=== PATIENT | male | born 1980 | race Hispanic/Latino ===

== ENCOUNTER 2018-05-22 21:53 | Emergency (ER) | payer MEDICAID ==
[~2018-05-22] VITALS: Ht 165.1 cm; Wt 91.0 kg
[2018-05-23 01:30] VITALS: BP 121/73
== END 2018-05-23 01:00 | disposition home or self-care (01) ==
LOC: ED 21:53
DX: S00.83XA Contusion of other part of head, initial encounter (principal); W21.02XA Struck by soccer ball, initial encounter; Y93.66 Activity, soccer; Y92.79 Other farm location as the place of occurrence of the external cause

== ENCOUNTER 2019-05-05 20:51 | Emergency (ER) | payer MEDICAID ==
[~2019-05-05] VITALS: Ht 165.1 cm; Wt 90.9 kg
[2019-05-05] MEDS ORDERED: CLARITIN10 M1 PO (22:06)
[2019-05-05] MEDS ORDERED: CEPHALEXIN500 M1 PO (22:06)
[2019-05-05] MEDS ORDERED: FLONASE AL50 MCG/ACT (22:06)
[2019-05-05 22:20] VITALS: BP 122/77
== END 2019-05-05 22:27 | disposition home or self-care (01) ==
LOC: ED 20:51
DX: J32.9 Chronic sinusitis, unspecified (principal)

== ENCOUNTER 2019-06-20 14:57 | Emergency (ER) | payer MEDICAID ==
[~2019-06-20] VITALS: Ht 165.1 cm; Wt 90.0 kg
[~2019-06-20 14:57] MED LIST: CEPHALEXIN500 M1 PO; CLARITIN10 M1 PO; FLONASE AL50 MCG/ACT
[2019-06-20 15:50] VITALS: BP 119/69
[2019-06-20] MEDS ORDERED: AMOXICILLIN875 MG PO (15:53)
[2019-06-20] MEDS ORDERED: CORTISPORIN OTI10 M2 AD (15:53)
== END 2019-06-20 15:50 | disposition home or self-care (01) ==
LOC: ED 14:57
DX: H60.91 Unspecified otitis externa, right ear (principal); H66.91 Otitis media, unspecified, right ear

== ENCOUNTER 2019-11-18 | Emergency (ER) | payer MEDICAID ==
[~2019-11-18] MED LIST changes: +AMOXICILLIN875 MG PO; +CORTISPORIN OTI10 M2 AD
[2019-11-18] MEDS ORDERED: TRAMADOL HYDROC50 MG PO (01:27)
[2019-11-18] MEDS ORDERED: IBUPROFEN600 MG PO (01:27)
== END 2019-11-18 01:39 | disposition home or self-care (01) ==
DX: S83.91XA Sprain of unspecified site of right knee, initial encounter (principal); M17.11 Unilateral primary osteoarthritis, right knee; X50.0XXA Overexertion from strenuous movement or load, initial encounter; Y93.89 Activity, other specified

== ENCOUNTER 2020-08-15 09:15 | Emergency (ER) | payer MEDICAID ==
[~2020-08-15] VITALS: Ht 165.1 cm; Wt 90.0 kg
[~2020-08-15 09:15] MED LIST changes: +IBUPROFEN600 MG PO; +TRAMADOL HYDROC50 MG PO
[2020-08-15 09:46] LABS: HEMATOCRIT 43.7 % (39.0-50.0); HEMOGLOBIN 14.9 g/dl (14.0-18.0); IMMATURE GRANULOCYTES 0.6 % (0.0-5.0); MEAN CELL VOLUME 89.2 fL CALC (80.0-100.0); MEAN CORPUSCULAR HGB 30.4 pG CALC (26.0-32.0); MEAN CORPUSCULAR HGB CONC 34.1 g/dL CAL (32.0-36.0); NEUT# 2.25 thou/uL (1.82-7.42); RED BLOOD COUNT 4.9 mill/uL (4.70-6.10); RED CELL DISTRI WIDTH 13.1 % (11.5-15.5)
[2020-08-15 09:57] LABS: ALBUMIN 4.4 g/dL (3.2-5.0); ALKALINE PHOSPHATASE 70 u/l (38-126); ANION GAP 14 (6-22 (CALC)); BILIRUBIN, TOTAL 0.8 mg/dL (0.0-1.4); BUN 14 mg/dL (9-20); BUN/CREATININE RATIO 19 (12-20 (CALC)); CARBON DIOXIDE 24 mmol/l (22-30); CHLORIDE 105 mmol/l (95-108); CREATININE 0.8 mg/dL (0.7-1.3); GFR > 60 ML/MIN (>=60 (CALC)); GFR FOR AFR.AMER. > 60 ML/MIN (>=60 (CALC)); LIPASE 42 u/l (23-300); POTASSIUM 3.9 mmol/l (3.5-5.1); SGOT/AST 29 u/l (17-59); SODIUM 139 mmol/l (137-146); TOTAL PROTEIN 7.6 g/dL (6.3-8.2)
[2020-08-15 11:15] LABS: URINE BILIRUBIN - DIPSTICK NEGATIVE (NEGATIVE); URINE BLOOD DIPSTICK NEGATIVE (NEGATIVE); URINE COLOR YELLOW; URINE GLUCOSE - DIPSTICK NEGATIVE (NEGATIVE); URINE KETONE NEGATIVE (NEGATIVE); URINE LEUK ESTERASE NEGATIVE (NEGATIVE); URINE NITRITE - DIPSTICK NEGATIVE (Negative); URINE PH 7.5 (4.5-8.0); URINE PROTEIN - DIPSTICK NEGATIVE (NEG-TRACE); URINE UROBILINOGEN - DIPSTICK 0.2 E.U./dL (0.2)
[2020-08-15 11:44] VITALS: BP 135/79
== END 2020-08-15 11:48 | disposition home or self-care (01) ==
LOC: ED 09:15
PROVIDERS: Family Medicine
DX: R07.9 Chest pain, unspecified (principal); R10.11 Right upper quadrant pain

== ENCOUNTER 2020-11-26 21:46 | Emergency (ER) | payer MEDICAID ==
[2020-11-26 22:15] LABS: HEMATOCRIT 38.4 % (39.0-50.0); HEMOGLOBIN 13.5 g/dl (14.0-18.0); IMMATURE GRANULOCYTES 0.4 % (0.0-5.0); MEAN CELL VOLUME 85.9 fL CALC (80.0-100.0); MEAN CORPUSCULAR HGB 30.2 pG CALC (26.0-32.0); MEAN CORPUSCULAR HGB CONC 35.2 g/dL CAL (32.0-36.0); NEUT# 2.53 thou/uL (1.82-7.42); RED BLOOD COUNT 4.47 mill/uL (4.70-6.10)
[2020-11-26 22:32] LABS: ALBUMIN 4.2 g/dL (3.2-5.0); ALKALINE PHOSPHATASE 70 u/l (38-126); ANION GAP 11 (6-22 (CALC)); BILIRUBIN, TOTAL 0.7 mg/dL (0.0-1.4); BUN 22 mg/dL (9-20); BUN/CREATININE RATIO 27 (12-20 (CALC)); CARBON DIOXIDE 25 mmol/l (22-30); CHLORIDE 105 mmol/l (95-108); CREATININE 0.8 mg/dL (0.7-1.3); GFR > 60 ML/MIN (>=60 (CALC)); GFR FOR AFR.AMER. > 60 ML/MIN (>=60 (CALC)); POTASSIUM 3.8 mmol/l (3.5-5.1); SGOT/AST 25 u/l (17-59); SODIUM 137 mmol/l (137-146); TOTAL PROTEIN 7.1 g/dL (6.3-8.2)
[2020-11-26 22:44] LABS: ACT PARTIAL THROMBO TIME 25.2 SECONDS (20.0-32.5); MYOGLOBIN 29 ng/mL (0 - 121); PROTHROMBIN TIME 9.9 SECONDS (9.0-12.5)
[2020-11-26 22:53] LABS: D-DIMER 0.17 mg/L (0.19-0.60)
[2020-11-26] MEDS ORDERED: MECLIZINE25 MG PO (23:40)
[2020-11-26 23:56] VITALS: BP 122/77
== END 2020-11-26 23:55 | disposition home or self-care (01) ==
LOC: ED 21:46
PROVIDERS: Family Medicine
DX: R42 Dizziness and giddiness (principal); F17.210 Nicotine dependence, cigarettes, uncomplicated

== ENCOUNTER 2021-02-28 19:08 | Emergency (ER) | payer MEDICAID ==
[~2021-02-28] VITALS: Ht 165.1 cm; Wt 90.0 kg
[~2021-02-28 19:08] MED LIST changes: +MECLIZINE25 MG PO
[2021-02-28 19:58] LABS: HEMATOCRIT 40.9 % (39.0-50.0); HEMOGLOBIN 14.3 g/dl (14.0-18.0); IMMATURE GRANULOCYTES 0.2 % (0.0-5.0); MEAN CELL VOLUME 86.1 fL CALC (80.0-100.0); MEAN CORPUSCULAR HGB 30.1 pG CALC (26.0-32.0); NEUT# 2.85 thou/uL (1.82-7.42); RED BLOOD COUNT 4.75 mill/uL (4.70-6.10); RED CELL DISTRI WIDTH 12.6 % (11.5-15.5)
[2021-02-28 19:59] LABS: URINE BILIRUBIN - DIPSTICK NEGATIVE (NEGATIVE); URINE BLOOD DIPSTICK NEGATIVE (NEGATIVE); URINE COLOR YELLOW; URINE GLUCOSE - DIPSTICK NEGATIVE (NEGATIVE); URINE KETONE NEGATIVE (NEGATIVE); URINE LEUK ESTERASE NEGATIVE (NEGATIVE); URINE PROTEIN - DIPSTICK NEGATIVE (NEG-TRACE); URINE SPECIFIC GRAVITY >=1.030; URINE UROBILINOGEN - DIPSTICK 0.2 E.U./dL (0.2)
[2021-02-28 20:04] LABS: URINE NITRITE - DIPSTICK NEGATIVE (Negative)
[2021-02-28 20:13] LABS: ALBUMIN 4.3 g/dL (3.2-5.0); ALKALINE PHOSPHATASE 65 u/l (38-126); AMYLASE 89 u/l (30-110); ANION GAP 12 (6-22 (CALC)); BILIRUBIN, TOTAL 0.5 mg/dL (0.0-1.4); BUN 24 mg/dL (9-20); BUN/CREATININE RATIO 28 (12-20 (CALC)); CARBON DIOXIDE 25 mmol/l (22-30); CHLORIDE 104 mmol/l (95-108); CREATININE 0.9 mg/dL (0.7-1.3); GFR > 60 ML/MIN (>=60 (CALC)); GFR FOR AFR.AMER. > 60 ML/MIN (>=60 (CALC)); LIPASE 71 u/l (23-300); POTASSIUM 3.8 mmol/l (3.5-5.1); SGOT/AST 26 u/l (17-59); SODIUM 137 mmol/l (137-146); TOTAL PROTEIN 7.4 g/dL (6.3-8.2)
[2021-02-28 21:55] VITALS: BP 115/68
== END 2021-02-28 21:58 | disposition home or self-care (01) ==
LOC: ED 19:08
PROVIDERS: Family Medicine
DX: R10.32 Left lower quadrant pain (principal); N32.9 Bladder disorder, unspecified; F17.200 Nicotine dependence, unspecified, uncomplicated; Z20.2 Contact with and (suspected) exposure to infections with a predominantly sexual mode of transmission

== ENCOUNTER 2021-05-07 16:59 | Emergency (ER) | payer MEDICAID ==
[~2021-05-07] VITALS: Ht 165.1 cm; Wt 90.0 kg
[2021-05-07 18:10] VITALS: BP 128/68
== END 2021-05-07 18:10 | disposition home or self-care (01) ==
LOC: ED 16:59
DX: R05 Cough (principal); F17.200 Nicotine dependence, unspecified, uncomplicated; Z86.16 Personal history of COVID-19; Z20.822 Contact with and (suspected) exposure to COVID-19

== ENCOUNTER 2021-06-19 10:57 | Emergency (ER) | payer MEDICAID ==
[~2021-06-19] VITALS: Ht 165.1 cm; Wt 100.0 kg
[2021-06-19 12:04] LABS: HEMATOCRIT 42.4 % (39.0-50.0); HEMOGLOBIN 14.7 g/dl (14.0-18.0); IMMATURE GRANULOCYTES 0.2 % (0.0-5.0); MEAN CELL VOLUME 89.1 fL CALC (80.0-100.0); MEAN CORPUSCULAR HGB 30.9 pG CALC (26.0-32.0); MEAN CORPUSCULAR HGB CONC 34.7 g/dL CAL (32.0-36.0); NEUT# 2.4 thou/uL (1.82-7.42); RED BLOOD COUNT 4.76 mill/uL (4.70-6.10); RED CELL DISTRI WIDTH 12.7 % (11.5-15.5)
[2021-06-19 12:27] LABS: ALBUMIN 4.3 g/dL (3.2-5.0); ALKALINE PHOSPHATASE 71 u/l (38-126); ANION GAP 11 (6-22 (CALC)); BILIRUBIN, TOTAL 0.7 mg/dL (0.0-1.4); BUN 19 mg/dL (9-20); BUN/CREATININE RATIO 26 (12-20 (CALC)); CARBON DIOXIDE 28 mmol/l (22-30); CHLORIDE 106 mmol/l (95-108); CREATININE 0.7 mg/dL (0.7-1.3); GFR > 60 ML/MIN (>=60 (CALC)); GFR FOR AFR.AMER. > 60 ML/MIN (>=60 (CALC)); POTASSIUM 3.9 mmol/l (3.5-5.1); SGOT/AST 31 u/l (17-59); SODIUM 141 mmol/l (137-146); TOTAL PROTEIN 7.1 g/dL (6.3-8.2)
[2021-06-19 12:44] LABS: URINE BILIRUBIN - DIPSTICK NEGATIVE (NEGATIVE); URINE BLOOD DIPSTICK NEGATIVE (NEGATIVE); URINE COLOR YELLOW; URINE GLUCOSE - DIPSTICK NEGATIVE (NEGATIVE); URINE KETONE NEGATIVE (NEGATIVE); URINE LEUK ESTERASE NEGATIVE (NEGATIVE); URINE PH 6.5 (4.5-8.0); URINE PROTEIN - DIPSTICK NEGATIVE (NEG-TRACE); URINE UROBILINOGEN - DIPSTICK 0.2 E.U./dL (0.2)
[2021-06-19 12:46] LABS: URINE NITRITE - DIPSTICK NEGATIVE (Negative)
[2021-06-19] MEDS ORDERED: MECLIZINE25 MG PO (13:00)
[2021-06-19] MEDS ORDERED: LEVAQUIN750 M1 PO (13:00)
[2021-06-19 13:17] VITALS: BP 129/73
== END 2021-06-19 13:17 | disposition home or self-care (01) ==
LOC: ED 10:57
PROVIDERS: Family Medicine
DX: R42 Dizziness and giddiness (principal); J32.9 Chronic sinusitis, unspecified; F17.200 Nicotine dependence, unspecified, uncomplicated; Z86.16 Personal history of COVID-19

== ENCOUNTER 2021-10-30 22:14 | Emergency (ER) | payer MEDICAID ==
[~2021-10-30] VITALS: Ht 165.1 cm; Wt 79.0 kg
[~2021-10-30 22:14] MED LIST changes: +LEVAQUIN750 M1 PO
[2021-10-30 23:29] VITALS: BP 109/69
[2021-10-30 23:40] VITALS: BP 103/64
[2021-10-31] VITALS: BP 110/69
[2021-10-31 00:20] VITALS: BP 111/62
[2021-10-31] MEDS ORDERED: TOBREX OPTH5 ML/BTL OD (00:58)
[2021-10-31 01:17] VITALS: BP 111/62
== END 2021-10-31 01:17 | disposition home or self-care (01) ==
LOC: ED 22:14
DX: H10.9 Unspecified conjunctivitis (principal); F17.200 Nicotine dependence, unspecified, uncomplicated; Z86.16 Personal history of COVID-19

== ENCOUNTER 2022-08-19 20:47 | Emergency (ER) | payer MEDICAID ==
[~2022-08-19] VITALS: Ht 165.1 cm; Wt 90.0 kg
[~2022-08-19 20:47] MED LIST changes: +TOBREX OPTH5 ML/BTL OD
[2022-08-19 22:11] LABS: BASO% 0.2 % (0-3); HEMOGLOBIN 14.6 g/dl (14.0-18.0); IMMATURE GRANULOCYTES 0.2 % (0.0-5.0); LYMPH% 9.1 % (15-41); MEAN CELL VOLUME 88.9 fL CALC (80.0-100.0); MEAN CORPUSCULAR HGB 31.7 pG CALC (26.0-32.0); MEAN CORPUSCULAR HGB CONC 35.6 g/dL CAL (32.0-36.0); MONO% 4.1 % (2-13); NEUT# 5.04 thou/uL (1.82-7.42); NEUT% 86.4 % (42-76); RED BLOOD COUNT 4.61 mill/uL (4.70-6.10); RED CELL DISTRI WIDTH 13.2 % (11.5-15.5)
[2022-08-19] MEDS ORDERED: ONDANSETRON4 MG PO (22:48)
[2022-08-19] MEDS ORDERED: IMODIUM2 MG PO (22:48)
[2022-08-19 23:15] VITALS: BP 136/83
== END 2022-08-19 23:20 | disposition home or self-care (01) ==
LOC: ED 20:47
PROVIDERS: Family Medicine
DX: B34.9 Viral infection, unspecified (principal); Z86.16 Personal history of COVID-19; Z20.822 Contact with and (suspected) exposure to COVID-19

== ENCOUNTER 2022-09-08 21:46 | Emergency (ER) | payer MEDICAID ==
[~2022-09-08] VITALS: Ht 162.6 cm; Wt 90.0 kg
[~2022-09-08 21:46] MED LIST changes: +IMODIUM2 MG PO; +ONDANSETRON4 MG PO
[2022-09-08 22:24] VITALS: BP 128/81
[2022-09-08 22:30] VITALS: BP 120/76
[2022-09-08 22:46] LABS: EOS% 1.7 % (0-8); HEMATOCRIT 38.7 % (39.0-50.0); HEMOGLOBIN 13.6 g/dl (14.0-18.0); IMMATURE GRANULOCYTES 0.2 % (0.0-5.0); LYMPH% 41.9 % (15-41); MEAN CORPUSCULAR HGB 31.3 pG CALC (26.0-32.0); MEAN CORPUSCULAR HGB CONC 35.1 g/dL CAL (32.0-36.0); MONO% 7.6 % (2-13); NEUT# 2.31 thou/uL (1.82-7.42); NEUT% 48.6 % (42-76); RED BLOOD COUNT 4.35 mill/uL (4.70-6.10)
[2022-09-08 22:53] LABS: LIPASE 75 u/l (23-300)
[2022-09-08 23:01] VITALS: BP 121/70
[2022-09-08] MEDS ORDERED: NORVASC5 M1 PO (23:06)
[2022-09-08 23:24] LABS: ALBUMIN 4.1 g/dL (3.2-5.0); ALKALINE PHOSPHATASE 75 u/l (38-126); BILIRUBIN, TOTAL 0.5 mg/dL (0.0-1.4); BUN 26 mg/dL (9-20); BUN/CREATININE RATIO 32 (12-20 (CALC)); CHLORIDE 109 mmol/l (95-108); CREATININE 0.8 mg/dL (0.7-1.3); GFR FOR AFR.AMER. > 60 ML/MIN (>=60 (CALC)); GFR OTHER RACES > 60 ML/MIN (>=60 (CALC)); POTASSIUM 3.8 mmol/l (3.5-5.1); SGOT/AST 28 u/l (17-59); SODIUM 138 mmol/l (137-146)
[2022-09-08 23:26] LABS: ANION GAP 9 (6-22 (CALC)); CARBON DIOXIDE 24 mmol/l (22-30)
[2022-09-08 23:30] VITALS: BP 120/80
[2022-09-09] VITALS: BP 115/79
[2022-09-09 00:30] VITALS: BP 117/79
[2022-09-09 01:01] VITALS: BP 115/70
[2022-09-09 01:53] VITALS: BP 115/70
== END 2022-09-09 01:54 | disposition home or self-care (01) ==
LOC: ED 21:46
PROVIDERS: Internal Medicine
DX: R00.2 Palpitations (principal); R06.02 Shortness of breath; I10 Essential (primary) hypertension; E78.00 Pure hypercholesterolemia, unspecified; F17.200 Nicotine dependence, unspecified, uncomplicated; Z86.16 Personal history of COVID-19

== ENCOUNTER 2024-04-04 20:52 | Emergency (ER) | payer MEDICAID ==
[2024-04-04] VITALS (9 sets, daily range): BP systolic 118–130; BP diastolic 76–87
[~2024-04-04] VITALS: Ht 162.6 cm; Wt 75.0 kg
[~2024-04-04 20:52] MED LIST changes: +NORVASC5 M1 PO
[2024-04-04] MEDS ORDERED: LIDOCAINE VISCOUS 2% 15 ML UDC PO ONE (21:15)
[2024-04-04] MEDS ORDERED: ALUM & MAG HYDROX-SIMETHICONE 30 ML PO ONE (21:15)
[2024-04-04] MEDS ORDERED: KETOROLAC TROMETHAMINE 30 MG/ML SDV IV ONE (21:15)
[2024-04-04] MEDS ORDERED: ACETAMINOPHEN 500 MG TAB PO ONE (21:15)
[2024-04-04] MEDS ORDERED: ASPIRIN 81 MG/TAB PO ONE (21:15)
[2024-04-04 21:43] LABS: BASO% 0.3 % (0-3); HEMOGLOBIN 13.8 g/dl (14.0-18.0); IMMATURE GRANULOCYTES 0.2 % (0.0-5.0); LYMPH% 29.7 % (15-41); MEAN CELL VOLUME 88.7 fL CALC (80.0-100.0); MEAN CORPUSCULAR HGB 30.6 pG CALC (26.0-32.0); MEAN CORPUSCULAR HGB CONC 34.5 g/dL CAL (32.0-36.0); MONO% 6.4 % (2-13); NEUT# 3.58 thou/uL (1.82-7.42); NEUT% 62.4 % (42-76); RED BLOOD COUNT 4.51 mill/uL (4.70-6.10); RED CELL DISTRI WIDTH 12.9 % (11.5-15.5)
[2024-04-04] MEDS ORDERED: AMLODIPINE BESYL5 MG PO (21:56)
[2024-04-04 22:01] LABS: ALBUMIN 4.5 g/dL (3.2-5.0); BILIRUBIN, TOTAL 0.8 mg/dL (0.2-1.3); CREATININE 0.9 mg/dL (0.7-1.3); POTASSIUM 3.8 mmol/l (3.5-5.1); TOTAL PROTEIN 7.7 g/dL (6.3-8.2)
[2024-04-04 22:02] LABS: D-DIMER 0.17 mg/L (0.19-0.60)
[2024-04-04 22:05] LABS: ACT PARTIAL THROMBO TIME 27.6 SECONDS (20.0-32.5); PROTHROMBIN TIME 9.9 SECONDS (9.0-12.5)
[2024-04-04] MEDS ORDERED: SONATA10 MG PO (22:40)
[2024-04-04] MEDS ORDERED: PEPCID40 MG PO (22:40)
[2024-04-04] MEDS ORDERED: Zaleplon 5 MG/CAP PO ONE (22:40)
== END 2024-04-04 23:09 | disposition home or self-care (01) ==
LOC: ED 20:52
PROVIDERS: Family Medicine
DX: R07.89 Other chest pain (principal); K20.90 Esophagitis, unspecified without bleeding; G47.00 Insomnia, unspecified; I10 Essential (primary) hypertension; Z86.16 Personal history of COVID-19